=== PATIENT | female | born 1955 | race Caucasian/White ===

== ENCOUNTER 2017-03-25 09:55 | Day surgery (SDC) | payer OTHER ==
[~2017-03-25 09:55] MED LIST: CATAFLAM50 MG PO; INTESTINEX1 CA1 PO; PROTONIX40 MG PO
== END 2017-03-25 14:20 | disposition home or self-care (01) ==
LOC: AMB-ENDOS 09:55
DX: K57.30 Diverticulosis of large intestine without perforation or abscess without bleeding (principal)